=== PATIENT | male | born 1990 ===

== ENCOUNTER 2017-12-12 04:05 | Emergency (ER) | payer SELFPAY ==
[2017-12-12 04:14] VITALS: BMI 34.8
--- NOTE | 2017-12-12 04:20 | ED PDOC ---
Arrival/HPI - General Chief Complaint: Medical Clearance Time Seen by Provider: 12/12/17 04:11 Historian: Patient, Police - History of Present Illness Narrative History of Present Illness (Text): 12/12/17 04:19 Magen Graham is a 27 year old male, whose past medical history includes depression and hypertension, who presents to the Emergency department brought in by [facility] for psychiatric evaluation tonight. Patient brought in [facility] for psychiatric clearance for incarceration due to patient's history of depression and suicidal attempts in the past. Patient states he feels depressed secondary to his incarceration but otherwise denies any suicidal ideation, homicidal ideation, or hallucinations. Patient also denies any fever, chills, chest pain, shortness of breath, nausea, vomiting, diarrhea, urinary symptoms, back pain, neck pain, headache, dizziness, or any other somatic complaints. Time/Duration: Other (tonight) Symptom Onset: Gradual Symptom Course: Unchanged Activities at Onset: Light Past Medical History - Provider Review Nursing Documentation Reviewed: Yes Family/Social History - Physician Review Nursing Documentation Reviewed: Yes Family/Social History: Unknown Family HX Allergies/Home Meds Allergies/Adverse Reactions: Allergies No Known Allergies Allergy (Verified 12/12/17 04:14) Home Medications: Home Meds Medication Instructions Recorded Confirmed No Known Home Med 12/12/17 12/12/17 Review of Systems - Physician Review All systems were reviewed & negative as marked: Yes - Review of Systems Constitutional: Normal. absent: Fevers Eyes: Normal ENT: Normal Respiratory: Normal. absent: SOB, Cough Cardiovascular: Normal. absent: Chest Pain Gastrointestinal: Normal. absent: Abdominal Pain, Diarrhea, Nausea, Vomiting Genitourinary Male: Normal. absent: Dysuria, Frequency, Hematuria, Urinary Output Changes Musculoskeletal: Normal. absent: Back Pain, Neck Pain Skin: Normal. absent: Rash Neurological: Normal. absent: Headache, Dizziness Endocrine: Normal Hemo/Lymphatic: Normal Psychiatric: Depression. absent: Suicidal Ideation Physical Exam Vital Signs Reviewed: Yes Vital Signs Temp Pulse Resp BP Pulse Ox 12/12/17 04:23 98.9 F 71 18 131/78 97 Temperature: Afebrile Blood Pressure: Normal Pulse: Regular Respiratory Rate: Normal Appearance: Positive for: Well-Appearing, Non-Toxic, Comfortable Pain Distress: None Mental Status: Positive for: Alert and Oriented X 3 - Systems Exam Head: Present: Atraumatic, Normocephalic Pupils: Present: PERRL Extroacular Muscles: Present: EOMI Conjunctiva: Present: Normal Mouth: Present: Moist Mucous Membranes Neck: Present: Normal Range of Motion Respiratory/Chest: Present: Clear to Auscultation, Good Air Exchange. No: Respiratory Distress, Accessory Muscle Use Cardiovascular: Present: Regular Rate and Rhythm, Normal S1, S2. No: Murmurs Abdomen: No: Tenderness, Distention, Peritoneal Signs Back: Present: Normal Inspection Upper Extremity: Present: Normal Inspection. No: Cyanosis, Edema Lower Extremity: Present: Normal Inspection. No: Edema Neurological: Present: GCS=15, CN II-XII Intact, Speech Normal Skin: Present: Warm, Dry, Normal Color. No: Rashes Psychiatric: Present: Alert, Oriented x 3, Normal Insight, Normal Concentration Medical Decision Making ED Course and Treatment: 12/12/17 04:19 Impression: 27 year old male brought in by [facility] for psychiatric clearance for incarceration. Plan: -- Labs, alcohol level -- Urine Drug Screen -- PES -- Reassess and disposition Progress Notes: 12/12/17 06:30 Pt seen and evaluated by PES screener Mary, who discussed case with psychiatrist unified communications architect, Dr. Montes. Pt psychiatrically and medically cleared for incarceration. - Lab Interpretations Lab Results: 12/12/17 05:13 12/12/17 05:13 Lab Results 12/12/17 05:48: Urine Opiates Screen Negative, Urine Methadone Screen Negative, Ur Barbiturates Screen Negative, Ur Phencyclidine Scrn Negative, Ur Amphetamines Screen Negative, U Benzodiazepines Scrn Negative, U Oth Cocaine Metabols Positive H, U Cannabinoids Screen Positive H 12/12/17 05:13: Sodium 142, Potassium 3.8, Chloride 108 H, Carbon Dioxide 24, Anion Gap 15, BUN 14, Creatinine 0.9, Est GFR ( Amer) > 60, Est GFR (Non- Af Amer) > 60, Random Glucose 90, Calcium 9.2 12/12/17 05:13: WBC 8.8, RBC 5.52, Hgb 14.8, Hct 43.5, MCV 78.8 L, MCH 26.8, MCHC 34.0, RDW 14.4, Plt Count 277, MPV 9.4 12/12/17 05:13: Alcohol, Quantitative < 10 I have reviewed the lab results: Yes - Scribe Statement The provider has reviewed the documentation as recorded by the Scribe Joanne Donahue All medical record entries made by the Scribe were at my direction and personally dictated by me. I have reviewed the chart and agree that the record accurately reflects my personal performance of the history, physical exam, medical decision making, and the department course for this patient. I have also personally directed, reviewed, and agree with the discharge instructions and disposition. Disposition/Present on Arrival - Present on Arrival Any Indicators Present on Arrival: No History of DVT/PE: No History of Uncontrolled Diabetes: No Urinary Catheter: No History of Decub. Ulcer: No History Surgical Site Infection Following: None - Disposition Have Diagnosis and Disposition been Completed?: Yes Diagnosis: Schizoaffective disorder, bipolar type Disposition: RELEASED IN POLICE CUSTODY Disposition Time: 06:40 Patient Plan: Discharge Condition: STABLE Discharge Instructions (ExitCare): Schizoaffective Disorder (DC) Additional Instructions: *Patient medically/psychiatrically cleared for incarceration Forms: [email or web address] (Japanese)
[2017-12-12 04:23] VITALS: RESP 18; TEMP 98.9
[2017-12-12 05:22] LABS: HEMOGLOBIN 14.8 g/dL (14.0-18.0); MEAN CELL VOLUME 78.8 fl (80.0-105.0); MEAN CORPUSCULAR HEMOGLOBIN 26.8 pg (25.0-35.0); MEAN PLATELET VOLUME 9.4 fl (7.0-11.0); RBC 5.52 10^6/uL (3.5-6.1); RED CELL DISTRIBUTION WIDTH 14.4 % (11.5-14.5); WHITE BLOOD COUNT 8.8 10^3/ul (4.5-11.0)
[2017-12-12 05:32] LABS: BLOOD UREA NITROGEN 14 mg/dL (7-21); CALCIUM 9.2 mg/dL (8.4-10.5); GFR AFRICAN-AMERICAN > 60; GFR NON-AFRICAN AMERICAN > 60
[2017-12-12 06:25] LABS: BARBITURATES, UR NEGATIVE (NEGATIVE); BENZODIAZEPINES, UR NEGATIVE (NEGATIVE); OPIATES, UR NEGATIVE (NEGATIVE); PHENCYCLIDINE, UR NEGATIVE (NEGATIVE)
[2017-12-12 07:00] VITALS: BP 125/82; PULSE 75; O2SAT 100
== END 2017-12-12 07:16 ==
LOC: ED 04:05
DX: F25.0 Schizoaffective disorder, bipolar type (principal); I10 Essential (primary) hypertension; F17.210 Nicotine dependence, cigarettes, uncomplicated; Z65.3 Problems related to other legal circumstances
CPT/HCPCS: 80048; 85027; 90791; 99282; G0480